=== PATIENT | male | born 1970 | race Caucasian/White ===

== ENCOUNTER 2022-03-13 10:01 | Outpatient (CLI) | payer BC | END 2022-03-13 10:02 | disposition home or self-care (01) | LOC: CSHCT 10:01 | PROVIDERS: ATTEND Family Medicine | DX: R55 Syncope and collapse (principal) | CPT/HCPCS: 70450 ==

== ENCOUNTER 2022-12-22 06:00 | Day surgery (SDC) | payer BC ==
[2022-12-20 13:18] VITALS: BMI 26.0
[2022-12-22] MEDS ORDERED: PROPOFOL 40 ML ONE (07:33)
[2022-12-22] MEDS ORDERED: Lidocaine 1% PF 5 ML VIAL ONE (07:33)
[2022-12-22] MEDS ORDERED: PROPOFOL 20 ML ONE (07:50)
== END 2022-12-22 08:46 | disposition home or self-care (01) ==
LOC: CSHSDC 06:00
PROVIDERS: ATTEND Surgery
PROC: 0DBN8ZX Excision of Sigmoid Colon, Via Natural or Artificial Opening Endoscopic, Diagnostic (ICD-10-PCS; principal; 2022-12-22)
DX: Z12.11 Encounter for screening for malignant neoplasm of colon (principal); K63.5 Polyp of colon; K57.30 Diverticulosis of large intestine without perforation or abscess without bleeding
CPT/HCPCS: 88305; J2704